=== PATIENT | male | born 1980 | race Caucasian/White ===

== ENCOUNTER 2018-05-26 21:39 | Inpatient (IN) | payer MEDICAID, OTHER ==
--- NOTE | 2018-05-26 21:56 | C.PDOC ---
History Of Present Illness 38 year old male presents to the ED requesting alcohol detox. Patient states he has been binge drinking for the past 3 days. Patient denies SI/HI, hallucinations, injury, fall, trauma. Time Seen by Provider: 05/26/18 21:55 Chief Complaint (Nursing): Substance Abuse History Per: Patient History/Exam Limitations: intoxication Onset/Duration Of Symptoms: Days (3) Current Symptoms Are (Timing): Still Present Suicide/Self Injury Attempted (Context): None Modifying Factor(s): Alcohol Associated Symptoms: denies: Depression, Suicidal Thoughts, Suicidal Plan Recent travel outside of the [place]: No Additional History Per: Patient Past Medical History Reviewed: Historical Data, Nursing Documentation, Vital Signs Vital Signs: Last Vital Signs Temp 98.6 F 05/26/18 21:42 Pulse 84 05/26/18 21:42 Resp 20 05/26/18 21:42 BP 127/81 05/26/18 21:42 Pulse Ox 97 05/26/18 21:42 - Medical History PMH: No Chronic Diseases Surgical History: No Surg Hx Family History: States: Unknown Family Hx - Social History Hx Alcohol Use: Yes Hx Substance Use: No - Immunization History Hx Tetanus Toxoid Vaccination: No Hx Influenza Vaccination: No Hx Pneumococcal Vaccination: No Review Of Systems Constitutional: Negative for: Fever, Chills Cardiovascular: Negative for: Chest Pain Respiratory: Negative for: Shortness of Breath Gastrointestinal: Negative for: Nausea, Vomiting, Abdominal Pain Skin: Negative for: Rash Psych: Negative for: Depression, Suicidal ideation Physical Exam - Physical Exam Appears: Non-toxic, No Acute Distress Skin: Warm, Dry Head: Normacephalic Eye(s): bilateral: Normal Inspection Neck: Supple Chest: Symmetrical Cardiovascular: Rhythm Regular Respiratory: No Rales, No Rhonchi, No Wheezing Gastrointestinal/Abdominal: Soft, No Tenderness, No Guarding, No Rebound Back: Normal Inspection Extremity: Normal ROM Extremity: Bilateral: Atraumatic, Normal Color And Temperature, Normal ROM Neurological/Psych: Oriented x3, Normal Speech, Normal Cognition Gait: Steady ED Course And Treatment - Laboratory Results Result Diagrams: 05/26/18 22:13 05/26/18 22:13 O2 Sat by Pulse Oximetry: 97 (ON RA) Pulse Ox Interpretation: Normal Progress Note: PLan: - Labs. - UA. - Crisis Disposition Discussed With : Joseph Cash Comment: accepted the pt onhis service and took over the care at 12:06AM Doctor Will See Patient In The: Hospital Counseled Patient/Family Regarding: Studies Performed, Diagnosis - Disposition Disposition: HOSPITALIZED Disposition Time: 21:56 Condition: FAIR Forms: [facility] (Andorran) - POA Present On Arrival: None - Clinical Impression Clinical Impression: Alcohol use disorder, severe, dependence - Scribe Statement The provider has reviewed the documentation as recorded by the Scribe Khari Mallory All medical record entries made by the Scribe were at my direction and personally dictated by me. I have reviewed the chart and agree that the record accurately reflects my personal performance of the history, physical exam, medical decision making, and the department course for this patient. I have also personally directed, reviewed, and agree with the discharge instructions and disposition. Decision To Admit - Pt Status Changed To: Hospital Disposition Of: Inpatient - Admit Certification Admit to Inpatient:: After my assessment, the patient will require hospitalization for at least two midnights. This is because of the severity of symptoms shown, intensity of services needed, and/or the medical risk in this patient being treated as an outpatient. - InPatient: Physician Admission Certification: I certify that this patient requires 2 or more midnights of care for the following reason:: After my assessment, the patient will require hospitalization for at least two midnights. This is because of the severity of symptoms shown, intensity of services needed, and/or the medical risk in this patient being treated as an outpatient. - . Bed Request Type: Detox Admitting Physician: Joseph Cash Patient Diagnosis: Alcohol use disorder, severe, dependence
[2018-05-26 22:15] LABS: URINE BACTERIA RARE (<OCC); URINE BILIRUBIN NEGATIVE (NEGATIVE); URINE BLOOD NEGATIVE (NEGATIVE); URINE CLARITY Clear (Clear); URINE COLOR Yellow (YELLOW); URINE GLUCOSE (UA) NORMAL (Normal); URINE LEUKOCYTE ESTERASE NEG Leu/uL (Negative); URINE PROTEIN 1+ mg/dL (NEGATIVE)
[2018-05-26 22:21] LABS: EOS % 0.9 % (0.0-4.0); HEMOGLOBIN 16.8 g/dL (12.0-18.0); LYMPH # 1.6 K/uL (1.0-4.3); LYMPH % 31.9 % (20.0-40.0); MEAN CELL VOLUME 95.9 fL (80.0-94.0); MEAN CORPUSCULAR HEMOGLOBIN 31.7 pg (27.0-31.0); MEAN CORPUSCULAR HGB CONC 33.1 g/dL (33.0-37.0); MEAN PLATELET VOLUME 8.1 fL (7.2-11.7); MONO # 0.5 K/uL (0.0-0.8); MONO % 11.3 % (0.0-10.0); NEUT # 2.7 K/uL (1.8-7.0); NEUT % 54.9 % (50.0-75.0); RBC 5.29 Mil/uL (4.40-5.90); WHITE BLOOD COUNT 4.9 K/uL (4.8-10.8)
[2018-05-26 22:27] LABS: BARBITURATES, UR NEGATIVE (NEGATIVE); BENZODIAZEPINES, UR NEGATIVE (NEGATIVE); OPIATES, UR NEGATIVE (NEGATIVE); PHENCYCLIDINE, UR NEGATIVE (NEGATIVE)
[2018-05-26 22:35] LABS: ALB/GLOB RATIO 1.3 (1.0-2.1); ALT/SGPT 93 U/L (21-72); AST/SGOT 80 U/L (17-59); BLOOD UREA NITROGEN 10 mg/dL (9-20); CALCIUM 9.1 mg/dl (8.6-10.4); GFR NON-AFRICAN AMERICAN > 60
--- NOTE | 2018-05-27 02:24 | PCM.BM ---
<Virgilio Green - Last Filed: 05/27/18 02:22> Treatment Plan Problems - Problems identified on initial assessmt Anxiety r/t substance use Date Initiated: 05/27/18 Time Initiated: 02:22 Assessment reference: NA Status: Active Low Motivation to Change Date Initiated: 05/27/18 Time Initiated: 02:23 Assessment reference: NA Status: Active Konwledge deficit: Alcohol use Date Initiated: 05/27/18 Time Initiated: 02:23 Assessment reference: NA Status: Active Treatment assets and liabiliti Patient Assests: cooperative, motivated, self-reliant, ADL independent, physically healthy, financial stabiity, good interpersonal skills Patient Liabilities: substance abuse - Milieu Protocol Maintain good personal hygiene: daily Encourage regular showers, daily Remind patient to perform daily oral care, daily Assist patient to perform ADL's Maintain personal safety: every shift Educate patient to report safety concerns to staff, every shift Monitor environment for contraband/sharps Medication safety: Monitor for expected outcome, potential side effects: every shift, Assess barriers to learning: every shift, Assess readiness for medication education: every shift <Diana Benton - Last Filed: 05/30/18 13:24> - Diagnosis (1) Alcohol use disorder, severe, dependence Status: Acute Interventions: 05/29/18 13:25 * Assess 7x/week regarding severity of withdrawal * Educate regarding risks, benefits, side effects and alternatives of medications * Use Motivational Interviewing for abstinence * Use CBT for relapse prevention * Medication management for withdrawal symptoms * Encourage medication assisted treatment * <Felisa Woods - Last Filed: 05/31/18 09:17> Family Contact Family involvement: Family/SO is involved Family contact name: boyfriend Family contacted how many times per week?: 2 - Goals for Treatment Patient goals for treatment: Complete detox and apply for short-term rehab.
--- NOTE | 2018-05-27 08:14 | PCM.PSYCH ---
Initial Psychiatric Evaluation - Initial Psychiatric Evaluation Type of Admission: Voluntary Legal Status: Capacity Chief Complaint (in patient's own words): I want to quit drinking.' History of Present Illness and Precipitating Events: Pt. is a 38 years old male, who lives alone and currently unemployed, came to the ED to get help in alcohol detox. Patient denies any past history of any inpatient psychiatric hospitalizations. He also denies any history of follow-up with any psychiatrist. Patient reports that he is drinking almost 1-2 pints of liquor on a daily basis. He reports that yesterday he consumed more than 1 pints of liquor, started having withdrawal symptoms, so he came to the ED to get help. He reports withdrawal symptoms including nausea, shakes, anxiety, headaches, cramps, shakes and sweating. He reports anxiety but denies any feelings of hopelessness or helplessness. He denies any suicidal ideation or any homicidal ideation. He denies any auditory hallucinations and paranoia. He denies any other substance abuse. Past medical history none reported Current Medications: Active Medications Generic Name Dose Route Start Last Admin Trade Name Freq PRN Reason Stop Dose Admin Clonidine HCl 0.1 mg 05/27/18 05:27 Catapres PO Q6 PRN Alcohol withdrawal Dicyclomine HCl 10 mg 05/27/18 05:29 Bentyl PO Q6 PRN Muscle spasms Hydroxyzine HCl 25 mg 05/27/18 05:33 Atarax PO Q6 PRN Anxiety Loperamide HCl 4 mg 05/27/18 05:37 Imodium PO Q6 PRN Diarrhea Ondansetron HCl 4 mg 05/27/18 05:24 Zofran Tab PO Q6 PRN Nausea/Vomiting Trazodone HCl 50 mg 05/27/18 05:31 Desyrel PO HS PRN Insomnia Past Psychiatric History - Past Psychiatric History Previous Treatment History: None Pertinent Medical Hx (Current Medical&Sleep Prob, Allergies): Allergies Allergy/AdvReac Type Severity Reaction Status Date / Time No Known Allergies Allergy Verified 05/26/18 21:46 No Known Home Med 05/26/18 Review of Systems - Review of Systems All systems: reviewed and no additional remarkable complaints except - Psychiatric Psychiatric: Anxiety, Irritability. absent: Suicidal Ideation Mental Status Examination - Personal Presentation Personal Presentation: Looks stated age - Affect Affect: Constricted - Motor Activity Motor Activity: Calm - Reliability in Providing Information Reliability in Providing Information: Fair - Speech Speech: Organized - Mood Mood: Anxious - Formal Thought Process Formal Thought Process: No Impairment - Obsessions/Compulsions Obsessions: No Compulsions: No - Cognitive Functions Orientation: Person, Place, Situation, Time Sensorium: Alert Attention/Concentration: Attentive Abstract Thinking: Bowie Estimate of Intelligence: Below average Judgement: Imparied, as evidence by: Poor judgement, Intact, as evidence by: Insight regarding need for hospitalization - Risk Risk: Withdrawal, Diminished functioning - Limitations Limitations: Living alone DSM 5 DX - DSM 5 DSM 5 Diagnosis: Alcohol use disorder severe Alcohol withdrawal uncomplicated - Recommended/Plan of Treatment Treatment Recommendations and Plan of Treatment: Alcohol use disorder severe Alcohol withdrawal uncomplicated CBT for relapse prevention Attend groups and activities Supportive therapy and psychoeducation DE for abstinence As needed medications All risks, benefits and alternatives of the meds discussed, and the pt agreed and understood. Taper with Ativan Gabapentin for augmentation Smoking cessation with DE Nicotine patch if needed Refer to rehab or IOP, and self-help groups Teach healthy lifestyle methods, i.e. diet, exercise, meditation - Smoking Cessation Smoking Cessation Initiated: No
[2018-05-27] MEDS ORDERED: Aluminum Hydroxide/Magnesium Hydroxide Susp (30 mL) PO PRN (08:18)
[2018-05-27] MEDS: Multiple Vitamins Tab PO SCH (09:25)
--- NOTE | 2018-05-28 09:12 | PCM.PYCHPN ---
Psychiatric Progress Note - Psychiatric Progress Note Patient seen today, length of contact: 15 min Patient Chief Complaint: I want to quit drinking.' Problems Identified/Issues Discussed: Patient was seen and evaluated, chart reviewed and discussed the staff. Patient reports withdrawal symptoms including headaches, sweating, anxiety and cramps. He reports anxiety but denies any feelings of hopelessness or helplessness. He denies any suicidal ideation or any homicidal ideation. He denies any auditory or visual hallucinations. He is taking medication but denies any side effects. Supportive therapy was given. Medication Change: Yes Medical Record Reviewed: Yes Mental Status Examination - Cognitive Function Orientation: Person, Place, Situation, Time Memory: Intact Attention: WNL Concentration: Poor Association: WNL Fund of Knowledge: Poor - Mood Mood: Anxious - Affect Affect: Constricted - Formal Thought Process Formal Thought Process: No Impairment - Suicidal Ideation Suicidal Ideation: No - Homicidal Ideation Homicidal Ideation: No Goal/Treatment Plan - Goal/Treatment Plan Need for Continued Stay: Remain at risks for inpatient hospitalization Progress Toward Problem(s) and Goals/Treatment Plan: Alcohol use disorder severe Alcohol withdrawal uncomplicated CBT for relapse prevention Attend groups and activities Supportive therapy and psychoeducation OK for abstinence As needed medications All risks, benefits and alternatives of the meds discussed, and the pt agreed and understood. Taper with Ativan Gabapentin for augmentation Smoking cessation with OK Nicotine patch if needed Refer to rehab or IOP, and self-help groups Teach healthy lifestyle methods, i.e. diet, exercise, meditation - Smoking Cessation Smoking Cessation Initiated: No
[2018-05-28] MEDS: Multiple Vitamins Tab PO SCH (09:19)
--- NOTE | 2018-05-29 10:23 | PCM.PYCHPN ---
Psychiatric Progress Note - Psychiatric Progress Note Patient seen today, length of contact: 15 min Patient Chief Complaint: "Somewhat better" Problems Identified/Issues Discussed: The pt is seen, chart reviewed, case is discussed with staff. The pt is compliant with medications and reports no side-effects. Symptoms are improving but needs more time to stabilize and to avoid relapse. Pt attends groups and activities. Support given, psycho-education provided. After care discussed Medication Change: Yes (detox changes daily) Medical Record Reviewed: Yes Mental Status Examination - Cognitive Function Orientation: Person, Place, Situation, Time Memory: Intact Attention: WNL Concentration: Poor Association: WNL Fund of Knowledge: WNL - Mood Mood: Anxious - Affect Affect: Constricted - Speech Speech: Appropriate - Formal Thought Process Formal Thought Process: No Impairment - Suicidal Ideation Suicidal Ideation: No - Homicidal Ideation Homicidal Ideation: No Goal/Treatment Plan - Goal/Treatment Plan Need for Continued Stay: Discharge may exacerbated symptoms, Severe functional impairment Progress Toward Problem(s) and Goals/Treatment Plan: Taper with ativan Gabapentin for augmentation if needed As needed medications All risks, benefits and alternatives of the meds discussed, and the pt agreed and understood. Attend groups and activities Supportive therapy and psychoeducation RI for abstinence CBT for relapse prevention Encourage MAT Refer to rehab or IOP, and self-help groups Teach healthy lifestyle methods, i.e. diet, exercise, meditation Smoking cessation with [place] Nicotine patch if needed
[2018-05-29] MEDS: Multiple Vitamins Tab PO SCH (11:01)
[2018-05-30] MEDS: Multiple Vitamins Tab PO SCH (10:13)
--- NOTE | 2018-05-30 13:34 | PCM.PYCHPN ---
Psychiatric Progress Note - Psychiatric Progress Note Patient seen today, length of contact: 15 min Patient Chief Complaint: "I'm anxious, my family is insisting on rehab" Problems Identified/Issues Discussed: The pt is seen, chart reviewed, case discussed with staff. Support and psychoeducation given, CBT and MD used briefly Pt is improving slowly and needs more time, still has ongoing symptoms. No SEs from medications, risks discussed. After care discussed - Likely to go to rehab but wants to go home first Medication Change: Yes (detox changes daily) Medical Record Reviewed: Yes Mental Status Examination - Cognitive Function Orientation: Person, Place, Situation, Time Memory: Intact Attention: WNL Concentration: Poor Association: WNL Fund of Knowledge: WNL - Mood Mood: Anxious - Affect Affect: Constricted - Speech Speech: Appropriate - Formal Thought Process Formal Thought Process: No Impairment - Suicidal Ideation Suicidal Ideation: No - Homicidal Ideation Homicidal Ideation: No Goal/Treatment Plan - Goal/Treatment Plan Need for Continued Stay: Discharge may exacerbated symptoms, Severe functional impairment Progress Toward Problem(s) and Goals/Treatment Plan: Taper with ativan Gabapentin for augmentation if needed As needed medications All risks, benefits and alternatives of the meds discussed, and the pt agreed and understood. Attend groups and activities Supportive therapy and psychoeducation MD for abstinence CBT for relapse prevention Encourage MAT Refer to rehab or IOP, and self-help groups Teach healthy lifestyle methods, i.e. diet, exercise, meditation Smoking cessation with MD Nicotine patch if needed
[2018-05-31] MEDS: Multiple Vitamins Tab PO SCH (09:14)
--- NOTE | 2018-06-01 08:46 | PCM.PYCHPN ---
Psychiatric Progress Note - Psychiatric Progress Note Patient seen today, length of contact: 15 min Patient Chief Complaint: "I'm anxious, my family is insisting on rehab" Problems Identified/Issues Discussed: The pt is seen, chart reviewed, case discussed with staff. Support and psychoeducation given, CBT and LA used briefly Pt is improving slowly and needs more time, still has ongoing symptoms. No SEs from medications, risks discussed. After care discussed - Likely to go to rehab but wants to go home first Medication Change: Yes (detox changes daily) Medical Record Reviewed: Yes Mental Status Examination - Cognitive Function Orientation: Person - Mood Mood: Anxious - Affect Affect: Constricted - Speech Speech: Appropriate - Formal Thought Process Formal Thought Process: No Impairment - Suicidal Ideation Suicidal Ideation: No - Homicidal Ideation Homicidal Ideation: No Goal/Treatment Plan - Goal/Treatment Plan Need for Continued Stay: Discharge may exacerbated symptoms, Severe functional impairment Progress Toward Problem(s) and Goals/Treatment Plan: Taper with ativan Gabapentin for augmentation if needed As needed medications All risks, benefits and alternatives of the meds discussed, and the pt agreed and understood. Attend groups and activities Supportive therapy and psychoeducation LA for abstinence CBT for relapse prevention Encourage MAT Refer to rehab or IOP, and self-help groups Teach healthy lifestyle methods, i.e. diet, exercise, meditation Smoking cessation with LA Nicotine patch if needed
--- NOTE | 2018-06-01 08:46 | PCM.PYCHDC ---
Mental Status Examination - Mental Status Examination Orientation: Person Discharge Summary - Discharge Note Consultations:: List each consultation separately and include: 1. Reason for request. 2. Findings. 3. Follow-up Summary of Hospital Course include:: 1. Description of specific treatment plan utilized for patients during their course of treatmen. 2. Summarize the time- course for resolution of acute symptoms and/or regressed behaviors. 3. Describe issues identified and worked on during hospitalization. 4. Describe medication utilized. 5. Describe medical problems identified and treated. 6. Reassessment of suicide risk Summary of Hospital Course: He will go to [facility] - Diagnosis (1) Alcohol use disorder, severe, dependence Current Visit: Yes Status: Acute - Final Diagnosis (DSM 5) Condition upon Discharge: FAIR Disposition: HOME/ ROUTINE Follow-up Treatment Plan: Taper with ativan Gabapentin for augmentation if needed As needed medications All risks, benefits and alternatives of the meds discussed, and the pt agreed and understood. Attend groups and activities Supportive therapy and psychoeducation [place] for abstinence CBT for relapse prevention Encourage MAT Refer to rehab or IOP, and self-help groups Teach healthy lifestyle methods, i.e. diet, exercise, meditation Smoking cessation with IA Nicotine patch if needed Prescriptions/Medication Reconciliation: Gabapentin [Neurontin] 300 mg PO BID #60 cap traZODone [Desyrel] 50 mg PO HS PRN #30 tab PRN Reason: Insomnia
[2018-06-01] MEDS: Multiple Vitamins Tab PO SCH (09:27)
[2018-06-01 10:38] VITALS: BP 126/77; PULSE 77; RESP 19; TEMP 98.9; O2SAT 99
== END 2018-06-01 10:50 | disposition home or self-care (01) | DRG 775 ==
LOC: C.ER 21:39 → C.7D 05-27 00:05
PROVIDERS: ADMIT Psychiatry & Neurology Psychiatry; ATTEND Psychiatry & Neurology Psychiatry
DX: F10.230 Alcohol dependence with withdrawal, uncomplicated (principal); F41.9 Anxiety disorder, unspecified; Y90.7 Blood alcohol level of 200-239 mg/100 ml